=== PATIENT | female | born 1990 | race Caucasian/White ===

== ENCOUNTER 2016-10-11 08:31 | Emergency (ER) | payer MEDICAID ==
[~2016-10-11] VITALS: Ht 160 cm; Wt 55.6 kg
[~2016-10-11 08:31] MED LIST: HYDR-3240 PO; IBUP-1222 PO; NITR100C56 PO; OXYC-302 PO; PHEN-418 PO; PREN1TAB27 PO; SULF1TAB24 PO; [UNRECOGNIZED DRUG - REMARK]
[2016-10-11 08:32] VITALS: BP 106/73
[2016-10-11] MEDS ORDERED: KETOROLAC 30 MG/1 ML IM ONE (09:30)
[2016-10-11] MEDS ORDERED: KETOROLAC 30 MG/1 ML ONE (09:43)
== END 2016-10-11 10:56 | disposition home or self-care (01) ==
LOC: ED 10:55
DX: S39.011A Strain of muscle, fascia and tendon of abdomen, initial encounter (principal); X58.XXXA Exposure to other specified factors, initial encounter; Y93.68 Activity, volleyball (beach) (court); Y92.39 Other specified sports and athletic area as the place of occurrence of the external cause; Y99.8 Other external cause status
CPT/HCPCS: 73502; 96372; 99284; J1885

== ENCOUNTER 2017-03-04 22:36 | Emergency (ER) | payer MEDICAID ==
[~2017-03-04] VITALS: Ht 160 cm; Wt 56.8 kg
[2017-03-04 22:38] VITALS: BP 106/68
[2017-03-04] MEDS ORDERED: PROPARACAINE OPHTH 0.5%, 15ML ONE (22:57)
[2017-03-04] MEDS ORDERED: FLUORESCEIN OPHTHALMIC 1 MG STRIP ONE (22:57)
== END 2017-03-04 23:51 | disposition home or self-care (01) ==
LOC: ED 23:30
DX: H57.12 Ocular pain, left eye (principal)
CPT/HCPCS: 99283; 99284

== ENCOUNTER 2017-11-23 17:08 | Emergency (ER) | payer MEDICAID, OTHER ==
[~2017-11-23] VITALS: Ht 157.5 cm; Wt 58.0 kg
[2017-11-23 17:23] VITALS: BP 116/75
== END 2017-11-23 19:40 | disposition home or self-care (01) ==
LOC: ED 19:05
DX: S56.911A Strain of unspecified muscles, fascia and tendons at forearm level, right arm, initial encounter (principal); S43.401A Unspecified sprain of right shoulder joint, initial encounter; V43.52XA Car driver injured in collision with other type car in traffic accident, initial encounter; Y93.89 Activity, other specified; Y92.89 Other specified places as the place of occurrence of the external cause; Y99.8 Other external cause status
CPT/HCPCS: 99284

== ENCOUNTER 2018-08-09 14:04 | Emergency (ER) | payer SELFPAY ==
[~2018-08-09] VITALS: Ht 157.5 cm; Wt 57.7 kg
[2018-08-09 15:33] LABS: BASOPHILS # (AUTO) 0.05 x10^3/uL (0-0.1); BASOPHILS % (AUTO) 1 % (0-1); EOSINOPHILS # (AUTO) 0.36 x10^3/uL (0-0.4); EOSINOPHILS % (AUTO) 4 % (1-7); LYMPHOCYTES # (AUTO) 1.66 x10^3/uL (1-3.4); LYMPHOCYTES % (AUTO) 20 % (22-44); MD NO; MEAN CORPUSCULAR HEMOGLOBIN 25.5 pg (27.0-34.8); MEAN CORPUSCULAR HGB CONC 32.6 g/dL (32.4-35.8); MEAN CORPUSCULAR VOLUME 78.3 fL (80-100); MEAN PLATELET VOLUME 8.3 fL (7.4-10.4); MONOCYTES # (AUTO) 0.58 x10^3/uL (0.2-0.8); MONOCYTES % (AUTO) 7 % (2-9); NEUTROPHILS # (AUTO) 5.55 x10^3/uL (1.8-6.8); NEUTROPHILS % (AUTO) 68 % (42-75); PLATELET COUNT 358 x10^3/uL (130-400); RED BLOOD COUNT 4.24 x10^6/uL (3.82-5.3); RED CELL DISTRIBUTION WIDTH 16.1 % (9.6-15.2)
[2018-08-09 15:38] LABS: ANION GAP 7 mmol/L (5-15); CALCIUM 9.2 mg/dL (8.5-10.1); CHLORIDE 108 mmol/L (98-107)
[2018-08-09 15:44] LABS: CREATININE 0.86 mg/dL (0.55-1.02)
--- NOTE | 2018-08-09 16:06 | NUR ---
HOTEL CONCIERGE: PT TO ED ROOM 25 FROM LOBBY AT THIS TIME
--- NOTE | 2018-08-09 16:13 | NUR ---
PT TO ED WITH BILAT BREAST PAIN/DISCHARGE, SOME VB AND CRAMPING. SOB/COUGH SINCE LAST NIGHT, WORSENING TODAY. HAS 3 CHILDREN, LAST HAD SIMILAR BREAST PAIN/DISCHARGE. NO MED HX. PT PLACED ON MONITOR, VSS. CALL LIGHT WITHIN REACH
[2018-08-09 16:22] VITALS: BP 108/79
== END 2018-08-09 16:45 | disposition home or self-care (01) ==
LOC: ED 16:39
DX: N63.20 Unspecified lump in the left breast, unspecified quadrant (principal); N63.10 Unspecified lump in the right breast, unspecified quadrant
CPT/HCPCS: 36415; 71046; 80048; 84703; 85025; 93005; 99284